=== PATIENT | female | born 1960 | race Caucasian/White ===

== ENCOUNTER 2020-04-15 14:32 | Emergency (ER) | payer BC ==
[~2020-04-15] VITALS: Ht 167.6 cm; Wt 95.3 kg
[2020-04-15] MEDS ORDERED: TIROSINT150 MCG PO (14:48)
[2020-04-15] MEDS ORDERED: CHILDREN'S ZYRT10 M1 PO (14:49)
[2020-04-15] MEDS ORDERED: MAX PO (14:49)
[2020-04-15] MEDS ORDERED: METFORMIN HCL500 M3 (14:49)
[2020-04-15] MEDS ORDERED: CENTRUM SILVER1 EAC5 PO (14:49)
[2020-04-15] MEDS ORDERED: LIPITOR 20 MG T20 M1 PO (14:49)
[2020-04-15] MEDS ORDERED: NORCO 5-325 TA1 EAC2 PO (18:05)
[2020-04-15] MEDS ORDERED: ZANAFLEX4 MG PO (18:05)
[2020-04-15] MEDS ORDERED: IBUPROFEN 800800 M1 PO (18:05)
[2020-04-15] MEDS ORDERED: CRUTCHES MISCELL (18:17)
[2020-04-15 18:22] VITALS: BP 126/64
== END 2020-04-15 18:25 | disposition home or self-care (01) ==
LOC: M.ERS 14:32
DX: M79.661 Pain in right lower leg (principal); R43.8 Other disturbances of smell and taste; Z20.828 Contact with and (suspected) exposure to other viral communicable diseases; Z90.89 Acquired absence of other organs; Z90.49 Acquired absence of other specified parts of digestive tract; Z79.899 Other long term (current) drug therapy